=== PATIENT | female | born 1975 | race Two or more races ===

== ENCOUNTER 2024-06-12 10:13 | Emergency (ER) | payer OTHER ==
[~2024-06-12] VITALS: Ht 167.6 cm; Wt 72.1 kg
== END 2024-06-12 13:00 ==
LOC: ER 10:15
DX: M54.2 Cervicalgia (principal); I10 Essential (primary) hypertension; Z88.6 Allergy status to analgesic agent

== ENCOUNTER 2024-08-10 09:46 | Outpatient (CLI) | payer OTHER | END 2024-08-10 09:54 | disposition home or self-care (01) | LOC: RAD 09:46 | PROVIDERS: ATTEND Orthopaedic Surgery | DX: M75.31 Calcific tendinitis of right shoulder (principal); M75.32 Calcific tendinitis of left shoulder ==